=== PATIENT | male | born 1990 | race Hispanic/Latino ===

== ENCOUNTER 2021-09-07 14:32 | Emergency (ER) | payer SELFPAY ==
[2021-09-07] MEDS ORDERED: KETOROLAC 30 MG/ML INJ ONE (15:43)
[2021-09-07] MEDS ORDERED: MORPHINE 4 MG/ML SYR ONE (15:43)
[2021-09-07] MEDS ORDERED: ONDANSETRON 4 MG/2 ML VIAL ONE (15:43)
[2021-09-07 15:44] LABS: Absolute Lymphocytes (CBC) 2.8 K/uL (0.7-4.9); Hematocrit 42.2 % (39.6-49.0); Lymphocytes % 33.3 % (15.3-44.8); MPV 8.6 fL (7.6-11.3); RBC Red Blood Cell Count 4.88 M/uL (4.33-5.43)
[2021-09-07 16:20] LABS: ALT/SGPT 56 U/L (12-78); AST/SGOT 30 U/L (15-37); Alkaline Phosphatase 77 U/L (45-117); BUN Blood Urea Nitrogen 10 mg/dL (7-18); Bicarbonate 23 mmol/L (21-32); Bilirubin Total 0.3 mg/dL (0.2-1.0); Glucose Level 94 mg/dL (74-106); Lipase 68 U/L (73-393); Potassium 3.8 mmol/L (3.5-5.1); Protein, Total 7.9 g/dL (6.4-8.2); Sodium Level 139 mmol/L (136-145)
[2021-09-07 16:22] LABS: Bilirubin Direct < 0.1 mg/dL (0-0.2)
--- NOTE | 2021-09-07 17:08 | RAD REPORT ---
EXAM DESCRIPTION: CT - Head C Spine Cap Qing Alexandra - 09/07/2021 4:47 pm CLINICAL HISTORY: Head and neck injury with chest and abdominal pain status post fall. Head and neck pain . TECHNIQUE: Computed axial tomography of the head and cervical spine was obtained Computed axial tomography of the chest, abdomen and pelvis was obtained. 100 cc Isovue-300 was given intravenously coronal and sagittal reconstruction was performed. All CT scans are performed using dose optimization technique as appropriate and may include automated exposure control or mA/KV adjustment according to patient size. COMPARISON: none FINDINGS: An intracranial bleed is not seen. The ventricles are normal in caliber. An extra-axial fl uid collection is not noted. Fluid within the sinuses is not seen A cervical fracture is not seen. No dislocation is seen. A mediastinal hematoma is not noted. A pleural effusion is not present. A lung contusion is not seen. The liver, spleen, pancreas, adrenals, kidneys and bladder do not demonstrate a traumatic injury Fatty liver. IMPRESSION: No acute intracranial abnormality is seen A cervical fracture is not visualized. If the patient continues have symptoms to suggest intracranial /spinal cord pathology then MRI would be recommended. No traumatic injury involving the chest, abdomen or pelvis is seen.
--- NOTE | 2021-09-07 17:12 | RAD REPORT ---
EXAM DESCRIPTION: Delphine Single View09/07/2021 3:33 pm CLINICAL HISTORY: Chest pain COMPARISON: none FINDINGS: The lungs appear clear of acute infiltrate. The heart is normal size IMPRESSION: No acute abnormalities displayed
--- NOTE | 2021-09-07 17:16 | RAD REPORT ---
EXAM DESCRIPTION: RAD - Shoulder Right 2 View - 09/07/2021 3:33 pm CLINICAL HISTORY: Right shoulder pain FINDINGS: No fracture or dislocation is seen.
--- NOTE | 2021-09-07 17:27 | ER ---
Nurse's Notes [facility] Name: Ramo Mills Age: 30 yrs Sex: Male : 1990 Arrival Date: 09/07/2021 Time: 14:34 Bed 13 Private MD: Diagnosis: Fall (on) (from) other stairs and steps-6 foot, ladder;Contusion of right shoulder Presentation: 09/07 14:43 Chief complaint: Patient states: Fell approximately 10 feet when ladder slipped from 1 under him at 1PM today. No LOC. Landed on back. R sided back/trunk/shoulder/arm pain since. Coronavirus screen: Vaccine status: Patient reports being unvaccinated. Client denies travel out of the [place] in the last 14 days. At this time, the client does not indicate any symptoms associated with coronavirus-19. Ebola Screen: Patient denies travel to an Ebola-affected area in the 21 days before illness onset. Initial Sepsis Screen: Does the patient meet any 2 criteria? No. Patient's initial sepsis screen is negative. Does the patient have a suspected source of infection? No. Patient's initial sepsis screen is negative. Risk Assessment: Do you want to hurt yourself or someone else? Patient reports no desire to harm self or others. Onset of symptoms was September 07, 2021. 14:43 Method Of Arrival: Ambulatory 1 14:43 Acuity: PRAFUL 3 ll1 Triage Assessment: 14:44 General: Appears uncomfortable, Behavior is cooperative, appropriate for age. Pain: ll1 Complains of pain in R shoulder Quality of pain is described as aching, Aggravated by increased activity. GI: Reports lower abdominal pain, upper abdominal pain. Musculoskeletal: Reports pain in right trunk/R shoulder. Injury Description: Bruise. Historical: - Allergies: 14:42 PENICILLINS; ll1 - PMHx: 14:42 Hyperlipidemia; ll1 - PSHx: 14:42 Appendectomy; ll1 - Immunization history:: Client reports having NOT received the Covid vaccine. - Social history:: Smoking status: Patient reports the use of cigarette tobacco products, smokes one-half pack cigarettes per day. - Family history:: not pertinent. Screenin:00 Abuse screen: Denies threats or abuse. [facility] 15:00 Nutritional screening: No deficits noted. Tuberculosis screening: No symptoms or risk jh6 factors identified. Fall Risk Fall in past 12 months (25 points). Assessment: 16:00 General: Appears in no apparent distress. uncomfortable, Behavior is calm, cooperative. jh6 Pain: Complains of pain in right trapezius and right scapular area Pain radiates to anterior aspect of right shoulder and posterior aspect of right shoulder Pain currently is 10 out of 10 on a pain scale. Quality of pain is described as aching, gnawing, Pain began suddenly, Is continuous, Aggravated by increased activity, repositioning. 16:00 Musculoskeletal: Tenderness present in right trapezius, right scapular area and right jh6 subscapular area. Injury Description: Bruise sustained to right scapular area. 16:42 Reassessment: Patient is alert, oriented x 3, equal unlabored respirations, skin jh6 warm/dry/pink. still painful with movement Patient states symptoms have improved. Vital Signs: 14:43 BP 148 / 109; Pulse 71; Resp 16; Temp 98.1; Pulse Ox 98% ; Weight 92.99 kg; Height 5 ll1 ft. 6 in. (167.64 cm); Pain 9/10; 15:20 BP 136 / 88; Pulse 86; Resp 18; Pulse Ox 100% ; Pain 4/10; jh6 14:43 Body Mass Index 33.09 (92.99 kg, 167.64 cm) ll1 ED Course: 14:34 Patient arrived in ED. mr 14:40 Abad Carrasquillo MD is Attending Physician. [facility] 14:42 Arm band placed on Patient placed in an exam room, on a stretcher. ll1 14:44 Triage completed. ll1 15:20 Inserted saline lock: 22 gauge in left forearm, using aseptic technique. Blood jh6 collected. 15:35 XRAY Chest (1 view) In Process Unspecified. EDMS 15:35 Shoulder Right (2 View) XRAY In Process Unspecified. EDMS 16:18 Nydia Correa, AISSATOU is Primary Nurse. jh6 16:[address] jh6 16:49 CT Traumagram (Head C Spine CAP W Con) In Process Unspecified. EDMS 17:26 Jonathan Scales MD is Referral Physician. adrian Administered Medications: 15:30 Drug: Ketorolac 30 mg Route: IVP; Site: left forearm; jh6 16:22 Follow up: Response: No adverse reaction jh6 15:30 Drug: morphine 4 mg Route: IVP; Site: left forearm; jh6 16:22 Follow up: Response: No adverse reaction jh6 15:30 Drug: Zofran (Ondansetron) 4 mg Route: IVP; Site: left forearm; jh6 16:23 Follow up: Response: No adverse reaction 6 Outcome: 17:26 Discharge ordered by MD. campbell 19:00 Patient left the ED. [facility] Signatures: Dispatcher [employer] EDAbad Sandy MD MD cha Rivera, Mary mr Lewis, Lynsay, RN RN ll1 Nydia Correa RN RN jh6
--- NOTE | 2021-09-07 17:27 | EDPHYS ---
Physician Documentation [facility] Name: Ramo Mills Age: 30 yrs Sex: Male : 1990 Arrival Date: 09/07/2021 Time: 14:34 Bed 13 Private MD: ED Physician Abad Carrasquillo HPI: 09/07 15:21 This 30 yrs old Male presents to ER via Ambulatory with complaints of Fall adrian Injury, Back Pain, Shoulder Pain. 15:21 Details of fall: The patient fell from a height, from a ladder, approximately 6 feet. adrian Onset: The symptoms/episode began/occurred just prior to arrival. Associated injuries: The patient sustained upper back injury, decreased range of motion, pain. Severity of symptoms: At their worst the symptoms were mild, moderate. The patient has not experienced similar symptoms in the past. 15:22 Trauma demographics: County: The injury occurred in [place] Location of Injury: The adrian injury occurred at work. Mechanism of injury: Fall: the patient fell from a ladder. Historical: - Allergies: 14:42 PENICILLINS; ll1 - PMHx: 14:42 Hyperlipidemia; ll1 - PSHx: 14:42 Appendectomy; ll1 - Immunization history:: Client reports having NOT received the Covid vaccine. - Social history:: Smoking status: Patient reports the use of cigarette tobacco products, smokes one-half pack cigarettes per day. - Family history:: not pertinent. ROS: 15:22 Constitutional: Negative for fever, chills, and weight loss, Eyes: Negative for injury, adrian pain, redness, and discharge, ENT: Negative for injury, pain, and discharge, Neck: Negative for injury, pain, and swelling, Cardiovascular: Negative for chest pain, palpitations, and edema, Respiratory: Negative for shortness of breath, cough, wheezing, and pleuritic chest pain, Abdomen/GI: Negative for abdominal pain, nausea, vomiting, diarrhea, and constipation, : Negative for injury, bleeding, discharge, and swelling, MS/Extremity: Negative for injury and deformity, Skin: Negative for injury, rash, and discoloration, Neuro: Negative for headache, weakness, numbness, tingling, and seizure, Psych: Negative for depression, anxiety, suicide ideation, homicidal ideation, and hallucinations, Allergy/Immunology: Negative for hives, rash, and allergies, Endocrine: Negative for neck swelling, polydipsia, polyuria, polyphagia, and marked weight changes, Hematologic/Lymphatic: Negative for swollen nodes, abnormal bleeding, and unusual bruising. 15:22 Back: Positive for decreased range of motion, pain with movement. Exam: 15:22 Constitutional: This is a well developed, well nourished patient who is awake, alert, adrian and in no acute distress. Head/Face: Normocephalic, atraumatic. Eyes: Pupils equal round and reactive to light, extra-ocular motions intact. Lids and lashes normal. Conjunctiva and sclera are non-icteric and not injected. Cornea within normal limits. Periorbital areas with no swelling, redness, or edema. ENT: Nares patent. No nasal discharge, no septal abnormalities noted. Tympanic membranes are normal and external auditory canals are clear. Oropharynx with no redness, swelling, or masses, exudates, or evidence of obstruction, uvula midline. Mucous membranes moist. Neck: Trachea midline, no thyromegaly or masses palpated, and no cervical lymphadenopathy. Supple, full range of motion without nuchal rigidity, or vertebral point tenderness. No Meningismus. Chest/axilla: Normal chest wall appearance and motion. Nontender with no deformity. No lesions are appreciated. Cardiovascular: Regular rate and rhythm with a normal S1 and S2. No gallops, murmurs, or rubs. Normal PMI, no JVD. No pulse deficits. Respiratory: Lungs have equal breath sounds bilaterally, clear to auscultation and percussion. No rales, rhonchi or wheezes noted. No increased work of breathing, no retractions or nasal flaring. Abdomen/GI: Soft, non-tender, with normal bowel sounds. No distension or tympany. No guarding or rebound. No evidence of tenderness throughout. Male : Normal genitalia with no discharge or lesions. Skin: Warm, dry with normal turgor. Normal color with no rashes, no lesions, and no evidence of cellulitis. Neuro: Awake and alert, GCS 15, oriented to person, place, time, and situation. Cranial nerves II-XII grossly intact. Motor strength 5/5 in all extremities. Sensory grossly intact. Cerebellar exam normal. Normal gait. Psych: Awake, alert, with orientation to person, place and time. Behavior, mood, and affect are within normal limits. 15:22 Back: ROM is painful, with flexion, with extension, normal spinal alignment noted, CVA tenderness, is absent, muscle spasm, is appreciated in the right scapular area and right subscapular area. Vital Signs: 14:43 BP 148 / 109; Pulse 71; Resp 16; Temp 98.1; Pulse Ox 98% ; Weight 92.99 kg; Height 5 ll1 ft. 6 in. (167.64 cm); Pain 9/10; 15:20 BP 136 / 88; Pulse 86; Resp 18; Pulse Ox 100% ; Pain 4/10; jh6 14:43 Body Mass Index 33.09 (92.99 kg, 167.64 cm) ll1 MDM: 14:40 Patient medically screened. [facility] 15:25 Differential diagnosis: closed head injury, C spine fracture, T spine fracture, L spine adrian fracture. Differential diagnosis: closed head injury, contusion, multiple trauma, sprain, strain. Data reviewed: vital signs, nurses notes, lab test result(s), radiologic studies, CT scan, plain films. Data interpreted: satellite project site monitor: rate is 71 beats/min, rhythm is regular. Test interpretation: by ED physician or midlevel provider: plain radiologic studies. Counseling: I had a detailed discussion with the patient and/or guardian regarding: the historical points, exam findings, and any diagnostic results supporting the discharge/admit diagnosis, lab results, radiology results, the need for outpatient follow up, for definitive care, a family practitioner, a general surgeon. 09/07 14:51 Order name: Basic Metabolic Panel; Complete Time: 16:45 [facility] 09/07 14:51 Order name: CBC with Diff; Complete Time: 16:14 [facility] 09/07 14:51 Order name: CT Traumagram (Head C Spine CAP W Con); Complete Time: 17:23 09/07 14:51 Order name: LFT's; Complete Time: 16:45 [facility] 09/07 14:51 Order name: Lipase; Complete Time: 16:45 [facility] 09/07 14:51 Order name: XRAY Chest (1 view); Complete Time: 17:23 09/07 14:51 Order name: Labs collected and sent [facility] 09/07 14:55 Order name: Shoulder Right (2 View) XRAY; Complete Time: 17:23 [facility] 09/07 15:33 Order name: INCENTIVE SPIROMETRY [facility] 09/07 16:46 Order name: Sling adrian Administered Medications: 15:30 Drug: Ketorolac 30 mg Route: IVP; Site: left forearm; 6 16:22 Follow up: Response: No adverse reaction 6 15:30 Drug: morphine 4 mg Route: IVP; Site: left forearm; 6 16:22 Follow up: Response: No adverse reaction [facility] 15:30 Drug: Zofran (Ondansetron) 4 mg Route: IVP; Site: left forearm; 6 16:23 Follow up: Response: No adverse reaction [facility] Disposition Summary: 09/07/21 17:26 Discharge Ordered Location: Home [facility] Problem: new adrian Symptoms: have improved adrian Condition: Stable adrian Diagnosis - Fall (on) (from) other stairs and steps - 6 foot, ladder adrian - Contusion of right shoulder adrian Followup: adrian - With: Private Physician - When: 2 - 3 days - Reason: Recheck today's complaints, Continuance of care, Re-evaluation by your physician Followup: adrian - With: - When: 2 - 3 days - Reason: Recheck today's complaints, Re-evaluation by your physician Discharge Instructions: - Discharge Summary Sheet adrian - Contusion adrian - Fall Prevention in the Home, Adult adrian - How to Use an Incentive Spirometer adrian - Contusion, [id number] Forms: - Medication Reconciliation Form [facility] - Thank You Letter [facility] - Antibiotic Education [facility] - Prescription Opioid Use [facility] Prescriptions: - Motrin IB 200 mg Oral Tablet - take 3 tablet by ORAL route every 6 hours As needed as needed with food; 40 adrian tablet; Refills: 0, Product Selection Permitted - Cyclobenzaprine 5 mg Oral Tablet - take 1 tablet by ORAL route 3 times per day As needed; 15 tablet; Refills: 0, [facility] Product Selection Permitted - Tylenol-Codeine #3 300 mg-30 mg Oral - take 2 tablet by ORAL route every 6 hours; 24 tablet; Refills: 0, Product [facility] Selection Permitted Signatures: Dispatcher [employer] EDAbad Sandy MD MD cha Lewis, Lynsay RN RN ll1 Nydia Correa RN RN jh6 Corrections: (The following items were deleted from the chart) 17:05 14:52 TYPE AND SCREEN+[id number] ordered. EDMS EDMS
[2021-09-08 00:28] VITALS: TEMP 98.1
[2021-09-08 00:29] VITALS: BP 136/88; O2SAT 100
== END 2021-09-07 19:00 | disposition home or self-care (01) ==
LOC: ER 14:32
DX: S40.011A Contusion of right shoulder, initial encounter (principal); M54.9 Dorsalgia, unspecified; W11.XXXA Fall on and from ladder, initial encounter; Y92.89 Other specified places as the place of occurrence of the external cause; Y99.8 Other external cause status; F17.210 Nicotine dependence, cigarettes, uncomplicated; Z88.0 Allergy status to penicillin
CPT/HCPCS: 36415; 70450; 71045; 71260; 72125; 74177; 80048; 80076; 83690; 85025; 96374; 96375; 99284; J2405; Q9967

== ENCOUNTER 2023-11-27 06:45 | Emergency (ER) | payer SELFPAY ==
--- NOTE | 2023-11-27 07:05 | ER ---
Nurse's Notes [facility] Name: Ramo Mills Age: 33 yrs Sex: Male : 1990 Arrival Date: 11/27/2023 Time: 06:45 Bed 4 Private MD: Diagnosis: Dental infection, dental abscess Presentation: 11/26 06:57 Chief complaint: Patient states: Woke up with mouth swelling this morning. Reports ss dental pain x "a few weeks.". Coronavirus screen: Client denies travel out of the [place] in the last 14 days. Ebola Screen: Patient denies exposure to infectious person. Patient denies travel to an Ebola-affected area in the 21 days before illness onset. Initial Sepsis Screen: Does the patient meet any 2 criteria? No. Patient's initial sepsis screen is negative. Does the patient have a suspected source of infection? No. Patient's initial sepsis screen is negative. Risk Assessment: Do you want to hurt yourself or someone else? Patient reports no desire to harm self or others. Onset of symptoms is unknown. 06:57 Method Of Arrival: Ambulatory ss 06:57 Acuity: PRAFUL 3 ss Triage Assessment: 06:59 General: Appears uncomfortable, Behavior is calm, cooperative. Pain: Complains of pain ss in right jaw. Neuro: Level of Consciousness is awake, alert, obeys commands, Oriented to person, place, time, situation. Respiratory: Airway is patent Respiratory effort is even, unlabored, Respiratory pattern is regular, symmetrical. Derm: Skin is pink, warm \\T\\ dry. Musculoskeletal: Swelling present in right cheek and right jaw. Historical: - Allergies: 06:59 PENICILLINS; ss - PMHx: 06:59 Hyperlipidemia; ss - PSHx: 06:59 Appendectomy; ss - Immunization history:: Client reports receiving the 2nd dose of the Covid vaccine. - Infectious Disease History:: Denies. - Social history:: Smoking status: Patient denies any tobacco usage or history of. Screenin:05 [facility] ED Fall Risk Assessment (Adult) History of falling in the last 3 months, ko1 including since admission No falls in past 3 months (0 pts) Confusion or Disorientation No (0 pts) Intoxicated or Sedated No (0 pts) Impaired Gait No (0 pts) Mobility Assist Device Used No (0 pt) Altered Elimination No (0 pt) Score/Fall Risk Level 0 - 2 = Low Risk Oriented to surroundings, Maintained a safe environment, Educated pt \\T\\ family on fall prevention, incl call for assistance when getting out of bed, Assessed \\T\\ reinforced patient's understanding of fall precautions, Hourly rounding (assess needs \\T\\ fall precautionary measures) done. Abuse screen: Denies threats or abuse. Denies injuries from another. Nutritional screening: No deficits noted. Tuberculosis screening: No symptoms or risk factors identified. Assessment: 07:05 General: Appears uncomfortable, Behavior is calm, cooperative, appropriate for age. ko1 Pain: Complains of pain in right cheek and face and right jaw. Neuro: No deficits noted. Cardiovascular: No deficits noted. Respiratory: No deficits noted. GI: No deficits noted. : No deficits noted. EENT: Reports pain in right cheek and face and right jaw. Derm: No deficits noted. Musculoskeletal: No deficits noted. Vital Signs: 06:57 BP 152 / 97; Pulse 63; Resp 16; Pulse Ox 100% on R/A; Weight 88.45 kg; Height 5 ft. 6 ss in. ; Pain 10/10; 07:15 BP 148 / 92; Pulse 68; Resp 16; Pulse Ox 99% ; ko1 06:57 Body Mass Index 31.47 (88.45 kg, 167.64 cm) ss 06:57 Pain Scale: Adult ss ED Course: 06:48 Patient arrived in ED. mr 06:58 Enrike Oleary MD is Attending Physician. sp3 06:59 Triage completed. ss 06:59 Arm band placed on right wrist. ss 07:05 Patient has correct armband on for positive identification. Allergy band placed. Bed in ko1 low position. Call light in reach. Provided Education on: call light. Pulse ox on. NIBP on. Door closed. Noise minimized. Pillow given. 07:05 No provider procedures requiring assistance completed. Patient did not have IV access ko1 during this emergency room visit. 07:08 Misty Dias, AISSATOU is Primary Nurse. ko1 Administered Medications: No medications were administered Medication: 07:05 VIS not applicable for this client. ko1 Outcome: 07:05 Discharge ordered by MD. sp3 07:15 Discharged to home ambulatory, ko1 07:15 Condition: stable 07:15 Discharge instructions given to patient, Instructed on discharge instructions, follow up and referral plans. medication usage, Demonstrated understanding of instructions, follow-up care, medications, Prescriptions given X 2, 07:16 Patient left the ED. ko1 Signatures: Gwendolyn Yan, Theo Reg mr Radha Girard, RN RN ss Enrike Oleary MD MD sp3 Misty Dias RN RN ko1 Corrections: (The following items were deleted from the chart) 07:15 07:05 BP 148 / 92; Pulse 68bpm; Resp 16bpm; Pulse Ox 99%; ko1 ko1
--- NOTE | 2023-11-27 07:05 | EDPHYS ---
Physician Documentation [facility] Name: Ramo Mills Age: 33 yrs Sex: Male : 1990 Arrival Date: 11/27/2023 Time: 06:45 Bed 4 Private MD: ED Physician Enrike Oleary HPI: 11/26 07:03 This 33 yrs old Male presents to ER via Ambulatory with complaints of Mouth sp3 Swelling. 07:03 33-year-old male with history of hyperlipidemia presents with right-sided mouth and sp3 dental pain in the mandible for approximately 2 days. Patient does not have a dentist has not had any regular routine dental care. He denies any fever, neck pain, chest pain, shortness of breath, inability to swallow inability to breathe, or any other signs or symptoms on ROS at this time.. Historical: - Allergies: 06:59 PENICILLINS; ss - PMHx: 06:59 Hyperlipidemia; ss - PSHx: 06:59 Appendectomy; ss - Immunization history:: Client reports receiving the 2nd dose of the Covid vaccine. - Infectious Disease History:: Denies. - Social history:: Smoking status: Patient denies any tobacco usage or history of. ROS: 07:03 Constitutional: Negative for fever, chills, and weight loss, Eyes: Negative for injury, sp3 pain, redness, and discharge, Cardiovascular: Negative for chest pain, palpitations, and edema, Respiratory: Negative for shortness of breath, cough, wheezing, and pleuritic chest pain, Abdomen/GI: Negative for abdominal pain, nausea, vomiting, diarrhea, and constipation, Back: Negative for injury and pain, MS/Extremity: Negative for injury and deformity, Skin: Negative for injury, rash, and discoloration, Neuro: Negative for headache, weakness, numbness, tingling, and seizure, Psych: Negative for depression, anxiety, suicide ideation, homicidal ideation, and hallucinations, Allergy/Immunology: Negative for hives, rash, and allergies, Endocrine: Negative for neck swelling, polydipsia, polyuria, polyphagia, and marked weight changes, 07:03 All other systems are negative, Exam: 07:03 Constitutional: This is a well developed, well nourished patient who is awake, alert, sp3 and in no acute distress. Eyes: Pupils equal round and reactive to light, extra-ocular motions intact. Lids and lashes normal. Conjunctiva and sclera are non-icteric and not injected. Cornea within normal limits. Periorbital areas with no swelling, redness, or edema. Neck: Trachea midline, no thyromegaly or masses palpated, and no cervical lymphadenopathy. Supple, full range of motion without nuchal rigidity, or vertebral point tenderness. No Meningismus. Chest/axilla: Normal chest wall appearance and motion. Nontender with no deformity. No lesions are appreciated. Cardiovascular: Regular rate and rhythm with a normal S1 and S2. No gallops, murmurs, or rubs. Normal PMI, no JVD. No pulse deficits. Respiratory: Lungs have equal breath sounds bilaterally, clear to auscultation and percussion. No rales, rhonchi or wheezes noted. No increased work of breathing, no retractions or nasal flaring. Abdomen/GI: Soft, non-tender, with normal bowel sounds. No distension or tympany. No guarding or rebound. No evidence of tenderness throughout. 07:03 ENT: Right-sided facial swelling along the mandible consistent with dental infection.. Vital Signs: 06:57 BP 152 / 97; Pulse 63; Resp 16; Pulse Ox 100% on R/A; Weight 88.45 kg; Height 5 ft. 6 ss in. ; Pain 10/10; 07:15 BP 148 / 92; Pulse 68; Resp 16; Pulse Ox 99% ; ko1 06:57 Body Mass Index 31.47 (88.45 kg, 167.64 cm) ss 06:57 Pain Scale: Adult ss MDM: 06:59 Patient medically screened. sp3 07:04 Data reviewed: vital signs, nurses notes, old medical records. ED course: 33-year-old sp3 male with dental infection right mandible. I am not highly suspicious for sepsis, shock, pharyngeal infection, parotiditis, or any other critical illness. Patient is penicillin allergic and we will discharge on clindamycin and diclofenac with outpatient dental follow-up.. Administered Medications: No medications were administered Disposition Summary: 11/27/23 07:05 Discharge Ordered Notes: Location: Home sp3 Condition: Stable sp3 Diagnosis - Dental infection, dental abscess sp3 Followup: sp3 - With: Private Physician - When: Upon discharge from the Emergency Department - Reason: Continuance of care Discharge Instructions: - Discharge Summary Sheet sp3 - Dental Abscess sp3 Forms: - Medication Reconciliation Form sp3 - Antibiotic Education sp3 - Prescription Opioid Use sp3 - Patient Portal Instructions sp3 - Leadership Thank You Letter sp3 Prescriptions: - Clindamycin HCl 300 mg Oral Capsule - take 1 capsule ORAL route every 6 hours for 10 days; 40 capsule; Refills: 0, sp3 Product Selection Permitted - Diclofenac Sodium 75 mg Oral Tablet Sustained Release - take 1 tablet ORAL route 2 times per day; 30 tablet; Refills: 0, Product sp3 Selection Permitted Signatures: Radha Girard, RN RN ss Enrike Oleary MD MD sp3
[2023-11-27 07:27] VITALS: BP 148/92; O2SAT 99
== END 2023-11-27 07:16 | disposition home or self-care (01) ==
LOC: ER 06:45
DX: K04.7 Periapical abscess without sinus (principal)
CPT/HCPCS: 99283